=== PATIENT | male | born 1965 ===

== ENCOUNTER 2023-01-03 07:48 | Emergency (ER) | payer BC, SELFPAY ==
[2023-01-03 08:03] VITALS: BP 108/68; PULSE 71; RESP 14; TEMP 35.9; O2SAT 97; BMI 29.7
--- NOTE | 2023-01-03 08:18 | ED_ITS ---
HPI - Abdominal Pain General Chief Complaint: Abdominal Pain Stated Complaint: abdominal pain Time Seen by Provider: 01/03/23 08:11 History of Present Illness HPI narrative: This 57-year-old male comes in reporting 3 days of lower abdominal pain. He states that the pain comes and goes. He can reproduce the pain when attempting to have a bowel movement or when sitting up or standing up straight. He does not report any fever, nausea, vomiting, diarrhea, or blood in the toilet. He d id have a colonoscopy 2 years ago with no significant findings a or abnormalities. He states he does have some urinary hesitancy but otherwise no dysuria symptoms. Related Data Home Medications Medication Instructions Recorded Confirmed allopurinol 300 mg tablet 300 mg PO DAILY 10/09/21 01/03/23 lisinopril 30 mg tablet 30 mg PO DAILY 10/09/21 01/03/23 fenofibrate 160 mg tablet 160 mg PO DAILY 02/06/22 01/03/23 metformin 500 mg tablet,extended 1,000 mg PO DAILY 02/06/22 01/03/23 release 24 hr Previous Rx's Medication Instructions Recorded ciprofloxacin HCl 500 mg tablet 500 mg PO BID #14 tabs 01/03/23 (Cipro) metronidazole 500 mg tablet 500 mg PO BID 7 days #14 tabs 01/03/23 Allergies Allergy/AdvReac Type Severity Reaction Status Date / Time No Known Drug Allergies Allergy Verified 02/06/22 12:41 Review of Systems Status of ROS Reports: 10 or more systems reviewed and unremarkable except as noted in History and below Narrative Constitutional: No fevers, no weight gain or loss. Eyes: No discharge. No vision changes. HENT: No congestion, no sore throat, no ear pain. Cardiovascular: No chest pain, no palpitations. Respiratory: No shortness of breath, no wheezes, no cough. Gastrointestinal: No vomiting, no diarrhea. Abdominal pain as described above. Genitourinary: No dysuria, no hematuria. Musculoskeletal: Normal range of motion. Skin: No rashes, no pruritis. Neurological: No dizziness, weakness, sensory change, speech change. Endo/Heme/Allergies: No bruising or bleeding. No polydipsia. Pysch: no suicidality, no anxiety, no insomnia. All other systems reviewed and are negative. PFSH PFSH Social History Smoking Status: Never smoker How often do you have a drink containing alcohol: never AUDIT-C Alcohol total score: 0 Non-prescribed substance use: denies use Exam Narrative: Exam Narrative: Constitutional: Well-developed, well-nourished, no acute distress. HEENT: Normocephalic, atraumatic. Neck: Normal range of motion. Nontender. Supple. Heart: Regular. No murmurs. Normal rate. Intact distal pulses. Lungs: Clear to auscultation. No chest discomfort. No wheezes, rhonchi, or rales. Abdomen: Normal bowel sounds. Pain in the lower abdomen. Mild rebound tenderness. Genitalia: Deferred. Back: No midline tenderness. Normal range of motion. Extremities: Normal range of motion. No injury. Skin: Intact. No rash. Warm. No erythema or pallor. Neurologic: No altered sensation. No weakness. Alert and oriented. Psychiatric: No suicidality. No anxiety or depression. No insomnia. Nursing notes and vitals signs are reviewed. Const: Vital Signs, click to edit/add: Vital Signs - 24 hr 01/03/23 08:03 Temperature 96.6 F L Pulse Rate [Pulse Oximeter] 71 Respiratory Rate 14 Blood Pressure [Ri ght Upper Arm] 108/68 Pulse Oximetry 97 Oxygen Delivery Me thod Room Air Course Vital Signs Vital signs: Initial Vital Signs Temperature 96.6 F L 01/03/23 08:03 Temperature Source Temporal Artery Scan 01/03/23 08:03 Pulse Rate 71 01/03/23 08:03 Pulse Rhythm Regular 01/03/23 08:03 Respiratory Rate 14 01/03/23 08:03 Blood Pressure 108/68 01/03/23 08:03 Blood Pressure Mean 81 01/03/23 08:03 Blood Pressure Position Sitting 01/03/23 08:03 Pulse Oximetry 97 01/03/23 08:03 Oxygen Delivery Method Room Air 01/03/23 08:03 Vital Signs Temperature 96.6 F L 01/03/23 08:03 Pulse Rate 71 01/03/23 08:03 Respiratory Rate 14 01/03/23 08:03 Blood Pressure 108/68 01/03/23 08:03 Pulse Oximetry 97 01/03/23 08:03 Oxygen Delivery Method Room Air 01/03/23 08:03 Temperature 96.6 F L 01/03/23 08:03 Pulse Rate 71 01/03/23 08:03 Respiratory Rate 14 01/03/23 08:03 Blood Pressure 108/68 01/03/23 08:03 Pulse Oximetry 97 01/03/23 08:03 Oxygen Delivery Method Room Air 01/03/23 08:03 MDM - Abdominal Pain MDM Narrative Medical decision making narrative: This patient comes in with report of abdominal pain as described above. An IV is established and CT imaging of the abdomen and pelvis is obtained. Radiology report indicates acute uncomplicated diverticulitis. The patient has reassuring lab results. He does have diabetes and his blood glucose is currently at around 150. At the time of discharge the patient appears safe for outpatient management. The treatment plan is reviewed along with written and verbal return precautions. Reasons to return and the importance of close followup were also reviewed. He received prescriptions for Cipro and Flagyl. Lab Data Labs: Lab Results 01/03/23 Range/Units 08:25 WBC 7.77 (4.50-11.00) K/uL RBC 4.73 (4.30-5.90) m/uL Hgb 14.6 (13.5-17.5) gm/dL Hct 44.2 (37.0-53.0) % MCV 93 (80-100) fL MCH 31 (26-34) pg MCHC 33 (32-36) gm/dL RDW Coeff of James 12.0 (11.5-15.5) % Plt Count 210 (140-440) K/uL Neut % (Auto) 64.3 (42.0-72.0) % Lymph % (Auto) 24.5 (20-44) % [place] % (Auto) 9.4 (0.0-11.0) % Eos % (Auto) 1.4 (0.0-7.0) % Baso % (Auto) 0.3 (0.0-3.0) % Neut # (Auto) 5.00 (1.7-7.0) K/uL Lymph # (Auto) 1.90 (0.90-2.90) K/uL [place] # (Auto) 0.70 (0.00-0.90) K/UL Eos # (Auto) 0.11 (0.00-0.50) K/uL Baso # (Auto) 0.02 (0.00-0.30) K/uL Abs Immat Gran (auto) 0.01 (0.00-0.30) K/uL Imm/Tot Granulo (auto) 0.1 % Sodium 133 L (135-149) mmol/L Potassium 4.2 (3.6-5.1) mmol/L Chloride 106 (96-114) mmol/L Carbon Dioxide 25 (20-32) mmol/L Anion Gap 2 L (7-15) mEq/L BUN 26 (7-30) mg/dL Creatinine 1.0 (0.5-1.5) mg/dL Estimated Creat Clear 71.78 Estimated GFR 87 ml/min Glucose 154 H (60-115) mg/dL Calcium 9.3 (8.4-10.6) mg/dL Imaging Data CT scan - abdomen: Radiologist's impression: 1. Acute uncomplicated sigmoid diverticulitis. 2. Hepatic steatosis. Discharge Plan Discharge Clinical Impression: Diverticulitis Patient Disposition: Home, Self-Care Condition: Stable Additional Instructions: Take medications as prescribed. Use [id number] medicines also as needed and directed. Recommended use of some kind of fiber additive such as Metamucil, Citrucel, or Benefiber, to keep stools soft. Follow up with MD return if worsening. Prescriptions: New metronidazole 500 mg tablet 500 mg PO BID 7 Days Qty: 14 0RF ciprofloxacin HCl [Cipro] 500 mg tablet 500 mg PO BID Qty: 14 0RF No Action lisinopril 30 mg tablet 30 mg PO DAILY Patient Comments: TAKE ONE TABLET BY MOUTH DAILY allopurinol 300 mg tablet 300 mg PO DAILY Patient Comments: TAKE 1 TABLET BY MOUTH TWICE DAILY metformin 500 mg tablet extended release 24 hr 1,000 mg PO DAILY fenofibrate 160 mg tablet 160 mg PO DAILY Follow Up/Referrals: Provider,Not a Local [Primary Care Provider] - Stand Alone Forms: [employer] Info Instructions
--- NOTE | 2023-01-03 08:18 | CRLHL7_ITS ---
For Patients: As a result of the Century Cures Act, medical imaging exams and procedure reports are released immediately into your electronic medical record. You may view this report before your referring provider. If you have questions, please contact your health care provider. INDICATION: Lower abdominal pain since Friday COMPARISON: None. TECHNIQUE: CT of the abdomen and pelvis after the administration of intravenous contrast. Multiplanar axial, coronal, and sagittal reformats were reconstructed. Contrast: 91 mL Isovue 370 intravenously. Oral contrast was not administered. FINDINGS: Lung bases: Normal. Liver: Moderate diffuse hepatic steatosis. No masses. Normal vasculature. Gallbladder and biliary tree: Normal gallbladder. No biliary duct dilation. Pancreas: Normal. Spleen: Normal. Normal size. Sigmoid diverticulosis. Single thick-walled inflamed diverticulum in the proximal sigmoid colon. There is adjacent inflammatory stranding. No perforation, abscess, or collection. Overall the diverticular burden is small. No dilated segments. No other abnormal bowel wall thickening or hyperenhancement. Small stool burden. The appendix is normal. Vessels: Aorta and major branches, including the mesenteric vessels: Patent. Normal caliber. No atherosclerotic plaques. IVC and tributaries: Normal. Mesenteric and portal veins: Normal. Peritoneum: No free fluid. Lymph nodes: No adenopathy. Pelvis: Physiologic appearance of the reproductive organs. Bones: No fractures. No focal bone lesions. Normal for age. Abdominal wall: Normal. IMPRESSION: IMPRESSION 1. Acute uncomplicated sigmoid diverticulitis. 2. Hepatic steatosis. Please note that all CT scans at this facility use dose modulation, iterative reconstruction, and/or weight-based dosing when appropriate to reduce radiation dose to as low as reasonably achievable. Dictated by Lora Byrd MD @ 01/03/2023 9:23:47 AM (Electronically Signed)
[2023-01-03 08:32] LABS: Basophils Absolute Auto 0.02 K/uL (0.00-0.30); Basophils Percent Auto 0.3 % (0.0-3.0); Eosinophils Absolute Auto 0.11 K/uL (0.00-0.50); Eosinophils Percent Auto 1.4 % (0.0-7.0); Hematocrit 44.2 % (37.0-53.0); Hemoglobin* 14.6 gm/dL (13.5-17.5); Immature Granulocytes Abs Auto 0.01 K/uL (0.00-0.30); Immature Granulocytes Pct Auto 0.1 %; Lymphocytes Percent Auto 24.5 % (20-44); Mean Corpuscular HGB Conc 33 gm/dL (32-36); Mean Corpuscular Hemoglobin 31 pg (26-34); Mean Corpuscular Volume 93 fL (80-100); Monocytes Percent Auto 9.4 % (0.0-11.0); Neutrophils Percent Auto 64.3 % (42.0-72.0); Platelet Count* 210 K/uL (140-440); Red Blood Count 4.73 m/uL (4.30-5.90); White Blood Count* 7.77 K/uL (4.50-11.00)
[2023-01-03 08:34] LABS: Slide Review Reflex No
[2023-01-03 08:57] VITALS: BP 110/81; PULSE 68; RESP 14; TEMP 35.9; O2SAT 99
[2023-01-03 08:57] LABS: Chloride* 106 mmol/L (96-114); Sodium* 133 mmol/L (135-149)
[2023-01-03 09:00] LABS: Anion Gap 2 mEq/L (7-15); Blood Urea Nitrogen* 26 mg/dL (7-30); Calcium* 9.3 mg/dL (8.4-10.6); Carbon Dioxide* 25 mmol/L (20-32); Est. Creatinine Clearance* 71.78; Estimated Glomerular Filt Rate 87 ml/min; Glucose* 154 mg/dL (60-115)
[2023-01-03 09:07] LABS: Potassium* 4.2 mmol/L (3.6-5.1)
[2023-01-03 09:53] VITALS: BP 110/81; PULSE 68; RESP 14; TEMP 35.9
== END 2023-01-03 09:55 | disposition home or self-care (01) ==
PROVIDERS: Emergency Provider Emergency Medicine Emergency Medical Services
DX: K57.92 Diverticulitis of intestine, part unspecified, without perforation or abscess without bleeding (principal)
CPT/HCPCS: 36415; 74177; 80048; 81001; 85025; 99283; 99284; Q9967